=== PATIENT | male | born 1965 | race Caucasian/White ===

== ENCOUNTER 2020-09-17 14:37 | Emergency (ER) | payer SELFPAY ==
[~2020-09-17] VITALS: Ht 172.7 cm; Wt 77.1 kg
[2020-09-17 14:37] VITALS: BP 160/103
[2020-09-17] MEDS ORDERED: TETRACAINE HCL 0.5% OPTH(EYE) SOLN 4ML EACHEYE ONE (15:15)
[2020-09-17] MEDS ORDERED: FLUORESCEIN SOD OPTH TEST STRIP EACHEYE ONE (15:15)
== END 2020-09-17 15:52 | disposition home or self-care (01) ==
LOC: ER 14:37
DX: S05.01XA Injury of conjunctiva and corneal abrasion without foreign body, right eye, initial encounter (principal); F17.210 Nicotine dependence, cigarettes, uncomplicated; X58.XXXA Exposure to other specified factors, initial encounter; Y93.89 Activity, other specified; Y92.89 Other specified places as the place of occurrence of the external cause; Y99.8 Other external cause status